=== PATIENT | female | born 1995 | race Caucasian/White ===

== ENCOUNTER 2016-10-27 22:21 | Inpatient (IN) ==
[2016-10-27] MEDS ORDERED: ZOFRAN IV PRN (22:22)
[2016-10-27] MEDS ORDERED: PEPCID PO PRN (22:22)
[2016-10-27] MEDS ORDERED: PITOCIN 30 UNITS/LR 30 UNITS/500 ML IV.SOLN IV SCH (22:22)
[2016-10-27] MEDS ORDERED: TYLENOL PO PRN (22:22)
[2016-10-27] MEDS ORDERED: AMBIEN PO PRN (22:22)
[2016-10-27] MEDS ORDERED: AMPICILLIN 2 GM/NS 2 GM/100 ML IVPB IV ONE (22:22)
[2016-10-27] MEDS ORDERED: STADOL IV PRN ×3 (22:22)
[2016-10-27] MEDS ORDERED: KEFZOL 1 GM/D5W 1 GM/50 ML IVPB IV PRN (22:22)
[2016-10-27] MEDS ORDERED: BRETHINE SUBQ PRN (22:22)
[2016-10-27] MEDS ORDERED: PEPCID IV PRN (22:22)
[2016-10-27 23:20] LABS: URINE SOURCE VOIDED
[2016-10-27] MEDS: LR 1,000 ML IV ONE (23:32)
[2016-10-27 23:37] LABS: UR AMPHETAMINES QUAL NONE DETECTED (NONE DETECT); UR BARBITUATES QUAL NONE DETECTED (NONE DETECT); UR BENZODIAZEPIN QUAL NONE DETECTED (NONE DETECT); UR CANNABINOIDS QUAL NONE DETECTED (NONE DETECT); UR COCAINE QUAL NONE DETECTED (NONE DETECT); UR MDMA QUAL NONE DETECTED (NONE DETECT); UR METHADONE QUAL NONE DETECTED (NONE DETECT); UR METHAMPHETAMINE QUAL NONE DETECTED (NONE DETECT); UR OPIATES QUAL NONE DETECTED (NONE DETECT); UR OXYCODONE QUAL NONE DETECTED (NONE DETECT); UR PCP QUAL NONE DETECTED (NONE DETECT); UR TCA QUAL NONE DETECTED (NONE DETECT)
[2016-10-27 23:43] LABS: BILIRUBIN URINE NEGATIVE (NEGATIVE); BLOOD URINE NEGATIVE (NEGATIVE); CLARITY HAZY (CLEAR); COLOR YELLOW; GLUCOSE URINE NEGATIVE (NEGATIVE); LEUKOCYTES URINE 1+ (NEGATIVE); NITRITE URINE NEGATIVE (NEGATIVE); PH URINE 6.5; PROTEIN URINE TRACE mg/dL (NEGATIVE); SP GRAVITY URINE 1.025; UROBILINOGEN URINE 4+(12 mg/dL)
[2016-10-28] MEDS ORDERED: CYTOTEC PO ONE
[2016-10-28 00:30] LABS: MANUAL DIFF NEEDED? NO
[2016-10-28 00:36] LABS: BASO% 0.1 % (0.0-0.8); EOS% 1.3 % (0.0-10.0); HEMATOCRIT 33.5 % (37.0-47.0); HEMOGLOBIN 11.1 g/dL (12.0-16.0); IMM GRAN# 0.02 X1000 (0.0-0.04); IMM GRAN% 0.3 % (0.0-0.5); LYMPH# 1.24 X1000 (1.2-3.4); LYMPH% 15.6 % (20.5-51.1); MCH 29.4 PG (27-31); MCHC 33.1 g/dL (33-37); MCV 88.9 FL (81-99); MONO# 0.63 X1000 (0.11-0.59); MONO% 7.9 % (1.7-9.3); MPV 13.5 FL (7.4-10.4); NEUT% 74.8 % (42.2-75.2); PLT 118 X1000 (130-400); RBC 3.77 XMIL (4.2-5.4)
[2016-10-28] MEDS ORDERED: CYTOTEC PO SCH (04:00)
[2016-10-28] MEDS: AMPICILLIN 1 GM/NS 1 GM/50 ML IVPB IV SCH ×4 (04:01→17:35)
[2016-10-28] MEDS ORDERED: FENTANYL-BUPIV-NS 2 MCG-0.1% 200 ML EPIDURAL PRN (07:23)
[2016-10-28] MEDS: LR 1,000 ML IV ONE (07:45)
[2016-10-28] MEDS ORDERED: MINERAL OIL ONE (09:37)
[2016-10-28] MEDS ORDERED: XYLOCAINE-MPF 1% INJ ONE (09:38)
[2016-10-28] MEDS ORDERED: LR 1,000 ML IV SCH (10:46)
[2016-10-28] MEDS ORDERED: XYLOCAINE-MPF 1% INJ PRN (17:00)
[2016-10-28] MEDS ORDERED: PERCOCET-5 PO PRN (17:00)
[2016-10-28] MEDS ORDERED: CYTOTEC PO PRN (17:00)
[2016-10-28] MEDS ORDERED: AMBIEN PO PRN (17:00)
[2016-10-28] MEDS ORDERED: PITOCIN 20 UNITS/LR 20 UNITS/1,000 ML IV.SOLN IV SCH (17:00)
[2016-10-28] MEDS ORDERED: PERI MEDS (DERMOPLAST/NUPERCAINAL/TUCKS) MISC PRN (17:00)
[2016-10-28] MEDS ORDERED: BENADRYL IV PRN (17:00)
[2016-10-28] MEDS ORDERED: BOOSTRIX VACCINE IM ONE (17:00)
[2016-10-28] MEDS ORDERED: MINERAL OIL PO PRN (17:00)
[2016-10-28] MEDS ORDERED: M-M-R II VACCINE SUBQ ONE (17:00)
[2016-10-28] MEDS ORDERED: BENADRYL PO PRN (17:00)
[2016-10-28] MEDS ORDERED: HYDROXYZINE PO PRN (17:00)
[2016-10-28] MEDS ORDERED: HYDROXYZINE IM PRN (17:00)
[2016-10-28] MEDS ORDERED: PITOCIN 30 UNITS/LR 30 UNITS/500 ML IV.SOLN IV ONE (17:00)
[2016-10-28] MEDS ORDERED: PITOCIN IM PRN (17:00)
[2016-10-28] MEDS: MOTRIN PO PRN (17:44)
[2016-10-28] MEDS: PERICOLACE PO SCH (20:45)
[2016-10-28] MEDS: PERCOCET-10 PO PRN (22:18)
[2016-10-29 05:29] LABS: HEMOGLOBIN 10.2 g/dL (12.0-16.0); MCH 28.7 PG (27-31); MCHC 31.9 g/dL (33-37); MCV 90.1 FL (81-99); PLT 108 X1000 (130-400); RBC 3.55 XMIL (4.2-5.4)
[2016-10-29] MEDS: PERCOCET-10 PO PRN (15:06)
[2016-10-29] MEDS: MOTRIN PO PRN (19:54)
[2016-10-29] MEDS: PERICOLACE PO SCH (21:32)
[2016-10-30 06:00] LABS: MANUAL DIFF NEEDED? NO
[2016-10-30 06:25] LABS: BASO% 0.3 % (0.0-0.8); EOS# 0.19 X1000 (0.0-0.7); EOS% 2.1 % (0.0-10.0); IMM GRAN# 0.04 X1000 (0.0-0.04); IMM GRAN% 0.4 % (0.0-0.5); MCH 28.5 PG (27-31); MCHC 31.3 g/dL (33-37); MCV 91.2 FL (81-99); MONO% 7.8 % (1.7-9.3); MPV 13.4 FL (7.4-10.4); NEUT% 69.4 % (42.2-75.2); PLT 110 X1000 (130-400); RBC 3.51 XMIL (4.2-5.4)
[2016-10-30] MEDS: MOTRIN PO PRN (17:42)
[2016-10-30 20:32] VITALS: BP 114/71
[2016-10-30] MEDS: PERICOLACE PO SCH (20:32)
== END 2016-10-30 21:02 | disposition home or self-care (01) ==
LOC: P.LD 22:21 → P.WC 10-29 21:48
PROVIDERS: ADMIT Obstetrics & Gynecology; ATTEND Obstetrics & Gynecology